=== PATIENT | female | born 1995 | race Caucasian/White ===

== ENCOUNTER 2021-07-05 11:02 | Emergency (ER) | payer OTHER, SELFPAY ==
[2021-07-05] VITALS (8 sets, daily range): BP systolic 102–122; BP diastolic 69–76; PULSE 56–66; RESP 15–18; TEMP 37.1; O2SAT 94–100
--- NOTE | 2021-07-05 11:50 | ED.CHESTPAIN ---
HPI - Chest Pain General Chief Complaint: Chest Pain Stated Complaint: lymph nodes/left arm numbness x3 days Time Seen by Provider: 07/05/21 11:27 Source: patient Mode of arrival: Ambulatory Limitations: no limitations History of Present Illness HPI narrative: Patient is a 26-year-old female who presents with cervical lymphadenopathy. She states she 1st noticed a mild lymph node on the left side of her now 14 months ago. She has been seen by her primary care provider for and has had ultrasound. Over the last 2 weeks she has noticed increase in lymph nodes and size now pulse bilaterally. She has no sore throat no difficulty breathing no fever no cough no chest pain no nausea or vomiting. She overall feels well. She has not had any night sweats. She has had weight loss over the last 17 months but she did get and loss baby weight she got to a point where she was happy with her weight however she continue to lose more weight she has lost over 70 lb. She has noted some increased fatigue. She has had some numbness and tingling in her left arm. No significant swelling in her axilla as or groin. No pain or frequent urination. Related Data Home Medications Medication Instructions Recorded Confirmed cephalexin 500 mg capsule 500 mg PO QID 07/05/21 07/05/21 Allergies Allergy/AdvReac Type Severity Reaction Status Date / Time clarithromycin [From Biaxin] Allergy Unknown Verified 07/05/21 11:43 Review of Systems Review of Systems Narrative: GENERAL: Denies chills, fatigue, malaise, fever, sweats, travel HEENT: See HPI RESPIRATORY: Denies dyspnea, cough, wheezing, hemoptysis, sputum. CARDIOVASCULAR: Denies chest pain, palpitations, orthopnea, edema GASTROINTESTINAL: Denies nausea, vomiting, abdominal pain, diarrhea, constipation, melena. : Denies dysuria, frequency, incontinence, hematuria, urinary retention, flank pain. MUSCULOSKELETAL: Denies weakness, joint pain, or bony pain SKIN: No rash, no erythema, no pruritus NEUROLOGIC: Denies weakness, dizziness, headache, numbness, change in speech, confusion PSYCHIATRIC: No concerning psychosocial issues. 12 point review of systems is negative except for those stated above and HPI Patient History Social History Smoking Status: Former smoker Smoking Status: Former smoker alcohol intake frequency: 0-2 drinks per day Substance Use Type: does not use Exam Initial Vital Signs Initial Vital Signs: Vital Signs Temperature 98.7 F 07/05/21 11:05 Pulse Rate 56 L 07/05/21 11:05 Respiratory Rate 18 07/05/21 11:05 Blood Pressure 122/76 07/05/21 11:05 Pulse Oximetry 99 07/05/21 11:05 GENERAL: Alert well dressed well-appearing 26-year-old female in no acute distress. HEENT: Head atraumatic,EOMI, pupils reactive, face symmetric, moist mucous membranes NECK: Posterior chain cervical lymphadenopathy noted more prominently on the left than the right but both present. Mobile nontender non erythematous. PHARYNX: No enlarged tonsils no uvula deviation CARDIOVASCULAR: Regular rate and rhythm without murmurs, rubs or gallops. RESPIRATORY: Breath sounds equal bilaterally, no wheezes rales or rhonchi. ABDOMEN: Soft, nontender. Normoactive bowel sounds all 4 quadrants. No guarding or rebound. EXTREMITIES: Normal range of motion, no clubbing or edema. Neurovascularly intact NEUROLOGICAL: Alert and oriented x4.Normal gait and speech. SKIN: Warm, dry, no laceration, no petechiae, no rashes or lesions. No axilla lymph nodes present bilaterally Course Orders Ordered: ED Orders 07/05/21 11:48 Complete Blood Count AUTO DIFF Stat Comprehensive Metabolic Panel Stat Lipase Stat Monotest Stat 07/05/21 12:02 CT chest abd pel w con Stat Vital Signs Vital signs: Vital Signs - 8 hr 07/05/21 12:00 07/05/21 12:30 07/05/21 13:00 Pulse Rate 64 60 59 L Blood Pressure 121/72 Pulse Oximetry 99 97 99 07/05/21 13:30 07/05/21 13:44 Pulse Rate 66 Blood Pressure 102/72 Pulse Oximetry 94 MDM - Chest Pain Lab Data Result diagrams: 07/05/21 11:48 07/05/21 11:48 Labs: Lab Results 07/05/21 07/05/21 07/05/21 Range/Units 11:48 11:48 11:48 WBC 6.5 (4.5-11.0) X10^3/uL RBC 4.26 (4.0-5.2) X10^6/uL Hgb 12.9 (12.0-16.0) g/dL Hct 38.9 (36-46) % MCV 91.5 (80-100) fL MCH 30.4 (26-34) PG MCHC 33.2 (30-36) % RDW 12.8 (11.6-14.8) % Plt Count 232 (150-400) X10^3/uL Neut % (Auto) 50.5 (50-75) % Lymph % (Auto) 41.1 H (25-40) % Hubbard % (Auto) 6.0 (3-14) % Eos % (Auto) 1.5 L (2-4) % Baso % (Auto) 0.9 (0-2) % Neut # (Auto) 3300 (1056-3903) /uL Lymph # (Auto) 2700 (8667-7719) /uL Hubbard # (Auto) 400 (0-900) /uL Eos # (Auto) 100 (0-450) /uL Baso # (Auto) 100 (0-100) /uL Sodium 139 (137-145) mmol/L Potassium 3.7 (3.4-5.1) mmol/L Chloride 108 H (98-107) mmol/L Carbon Dioxide 27 (22-32) mmol/L BUN 7 (7-17) mg/dL Creatinine 0.65 (0.52-1.04) mg/dL Estimated GFR > 60.0 (>60) mL/min BUN/Creatinine Ratio 10.8 (6-22) Glucose 91 (70-100) mg/dL Calcium 9.5 (8.4-10.2) mg/dL Total Bilirubin 0.8 (0.2-1.3) mg/dL AST 33 (14-36) IU/L ALT 17 (<35) IU/L Alkaline Phosphatase 60 (38-126) U/L Total Protein 7.0 (6.3-8.2) g/dL Albumin 4.3 (3.5-5.0) g/dL Globulin 2.7 (1.7-4.1) g/dL Albumin/Globulin Ratio 1.6 (1.0-2.8) Lipase 133 (23-300) U/L Monoscreen Negative (Negative) Point of Care Testing Test Results Negative Urine Dip Bedside Urine Glucose Negative Bedside Urine Bilirubin - Negative Bedside Urine Ketone - Negative Urine Specific [place] 1.020 Bedside Urine Occult Blood - Negative Bedside Urine pH 6.0 Bedside Urine Protein - Negative Bedside Urine Urobilinogen - Negative Bedside Urine Nitrite - Negative Bedside Urine Leukocytes - Negative Esterase Imaging Data CT scan - abdomen/pelvis: Radiologist's Impression: PROCEDURE:? CT CHEST ABD PEL W CON ? INDICATIONS:? Cervical swollen lymph nodes x 14 months ? TECHNIQUE:? After the administration of oral and intravenous contrast, axial sections acquired from the supraclavicular neck to the pubic symphysis.? Coronal and sagittal reformats were performed.? For radiation dose reduction, the following was used:? automated exposure control, adjustment of mA and/or kV according to patient size.? ? COMPARISON:? None. ? FINDINGS:? Image quality:? Excellent.? ? CHEST: Lower Neck: No enlarged lymph nodes.? Thyroid: Within normal limits. Axillae: No enlarged lymph nodes. Chest Wall:? Unremarkable.? ? Lungs and Airways: No consolidation or suspicious nodules. Pleura: No pneumothorax or pleural effusions.? ? Heart: Heart size is normal.? No pericardial effusion. Thoracic Vessels: The aorta and pulmonary arteries demonstrate normal size.? Mediastinum and Cassandra: No enlarged lymph nodes.? There is a small amount residual thymus tissue seen, which is not regarded to be pathologic in a patient of this age. ? Esophagus: No wall thickening. No hiatal hernia. ? ? ABDOMEN: Liver:? Unremarkable.? ? Gallbladder:? Unremarkable.? ? Biliary ducts:? Unremarkable.? ? Pancreas:? Unremarkable.? ? Spleen:? Unremarkable.? ? Adrenal Glands:? Unremarkable.? ? Kidneys and Ureters:? Unremarkable.? ? ? Stomach and Bowel:? Stomach, small bowel loops, and colon are unremarkable.? A normal appendix is incidentally noted.? Peritoneum:? No abnormal intraperitoneal fluid.? No free air.? ? Ventral Wall: ? No hernia.? Abdominal Nodes:? No retroperitoneal or mesenteric adenopathy by size criteria.? Vessels:? Aorta and inferior vena cava are normal in size.? ? PELVIS: Pelvic Organs:? The uterus is unremarkable.? There is a 4.5 cm left ovarian cyst seen, as on series 2, image 101. A small amount of layering free fluid can be seen within the pelvis, which is considered to be within physiologic limits. Bladder:? Unremarkable.? ? Pelvic Nodes: No enlarged lymph nodes.? Miscellaneous: No inguinal hernias are seen. ? ? ? Bones:? There is moderate levoconvex thoracolumbar scoliosis. ? IMPRESSION:? No enlarged lymph nodes are seen throughout, including within the visualized supraclavicular regions. ? Incidental note is made of a 4.5 cm left ovarian cyst, which is almost certainly benign in a patient of this age. If it would be clinically appropriate, a followup pelvic ultrasound could be considered in 6 weeks to assure resolution/ improvement.? ? Moderate levoconvex thoracolumbar scoliosis. MDM Narrative Medical decision making narrative: Patient has some mild cervical lymphadenopathy posteriorly more on right than left. She states increasing lymph nodes over the last 2 weeks. Blood work is overall reassuring. She has no obvious airway compromise of her actually relatively small they are not significantly enlarged. Have not found anyone else in axilla or groin. She she is following up closely with primary care. CT does not show any abnormality. She overall appears well and at this time recommend outpatient follow-up. Discharge Plan Departure Patient Disposition: Home Clinical Impression: Lymphadenopathy Instructions: DI for Lymph Node Biopsy Activity Restrictions/Additional Instructions: *You have been diagnosed with lymphadenopathy *What to do: At this time blood work and CT scan are overall reassuring. You may require and lymph node biopsy. Please follow-up with her primary care provider *Continue to take medications as directed *Follow up with your primary care provider in 2-3 days *Return to ER if you should have fever, increasing weakness fatigue, shortness of breath or any new, worsening or concerning symptoms Prescriptions: No Action cephalexin 500 mg capsule 500 mg PO QID RF: 0 Referrals: Radha Dickey, NAJMA, [employer] [Primary Care Provider] -
--- NOTE | 2021-07-05 12:02 | DI.CT.S_ITS ---
PROCEDURE: CT CHEST ABD PEL W CON INDICATIONS: Cervical swollen lymph nodes x 14 months TECHNIQUE: After the administration of oral and intravenous contrast, axial sections acquired from the supraclavicular neck to the pubic symphysis. Coronal and sagittal reformats were performed. For radiation dose reduction, the following was used: automated exposure control, adjustment of mA and/or kV according to patient size. COMPARISON: None. FINDINGS: Image quality: Excellent. CHEST: Lower Neck: No enlarged lymph nodes. Thyroid: Within normal limits. Axillae: No enlarged lymph nodes. Chest Wall: Unremarkable. Lungs and Airways: No consolidation or suspicious nodules. Pleura: No pneumothorax or pleural effusions. Heart: Heart size is normal. No pericardial effusion. Thoracic Vessels: The aorta and pulmonary arteries demonstrate normal size. Mediastinum and Cassandra: No enlarged lymph nodes. There is a small amount residual thymus tissue seen, which is not regarded to be pathologic in a patient of this age. Esophagus: No wall thickening. No hiatal hernia. ABDOMEN: Liver: Unremarkable. Gallbladder: Unremarkable. Biliary ducts: Unremarkable. Pancreas: Unremarkable. Spleen: Unremarkable. Adrenal Glands: Unremarkable. Kidneys and Ureters: Unremarkable. Stomach and Bowel: Stomach, small bowel loops, and colon are unremarkable. A normal appendix is incidentally noted. Peritoneum: No abnormal intraperitoneal fluid. No free air. Ventral Wall: No hernia. Abdominal Nodes: No retroperitoneal or mesenteric adenopathy by size criteria. Vessels: Aorta and inferior vena cava are normal in size. PELVIS: Pelvic Organs: The uterus is unremarkable. There is a 4.5 cm left ovarian cyst seen, as on series 2, image 101. A small amount of layering free fluid can be seen within the pelvis, which is considered to be within physiologic limits. Bladder: Unremarkable. Pelvic Nodes: No enlarged lymph nodes. Miscellaneous: No inguinal hernias are seen. Bones: There is moderate levoconvex thoracolumbar scoliosis. IMPRESSION: No enlarged lymph nodes are seen throughout, including within the visualized supraclavicular regions. Incidental note is made of a 4.5 cm left ovarian cyst, which is almost certainly benign in a patient of this age. If it would be clinically appropriate, a followup pelvic ultrasound could be considered in 6 weeks to assure resolution/ improvement. Moderate levoconvex thoracolumbar scoliosis. Dictated by: Kirit Diaz M.D. on 07/05/2021 at 12:00 Approved by: Kirit Diaz M.D. on 07/05/2021 at 12:04
--- NOTE | 2021-07-05 12:03 | PC.NURSE ---
pt complaining of lymph node swelling and pain. left arm numbness x 3 days. states they have been following up on her lymph nodes. no trouble swallowing.
[2021-07-05 12:12] LABS: Add Manual Diff / Slide Review NO; Basophils Absolute Auto 100 /uL (0-100); Basophils Percent Auto 0.9 % (0-2); Eosinophils Absolute Auto 100 /uL (0-450); Eosinophils Percent Auto 1.5 % (2-4); Hematocrit 38.9 % (36-46); Hemoglobin 12.9 g/dL (12.0-16.0); Lymphocytes Absolute Auto 2700 /uL (1100-4500); Lymphocytes Percent Auto 41.1 % (25-40); Mean Corpuscular HGB Conc 33.2 % (30-36); Mean Corpuscular Hemoglobin 30.4 PG (26-34); Mean Corpuscular Volume 91.5 fL (80-100); Monocytes Absolute Auto 400 /uL (0-900); Neutrophils Absolute Auto 3300 /uL (1500-7000); Neutrophils Percent Auto 50.5 % (50-75); Platelet Count 232 X10^3/uL (150-400); Red Blood Cell Count 4.26 X10^6/uL (4.0-5.2); Red Cell Distribution Width 12.8 % (11.6-14.8); White Blood Cell Count 6.5 X10^3/uL (4.5-11.0)
[2021-07-05 12:15] LABS: Alanine Aminotransferase 17 IU/L (<35); Albumin 4.3 g/dL (3.5-5.0); Albumin Globulin Ratio 1.6 (1.0-2.8); Alkaline Phosphatase 60 U/L (38-126); Aspartate Aminotransferase 33 IU/L (14-36); BUN Creatinine Ratio 10.8 (6-22); Bilirubin Total 0.8 mg/dL (0.2-1.3); Blood Urea Nitrogen 7 mg/dL (7-17); Calcium 9.5 mg/dL (8.4-10.2); Carbon Dioxide 27 mmol/L (22-32); Chloride 108 mmol/L (98-107); Estimated Glomerular Filt Rate > 60.0 mL/min (>60); Globulin 2.7 g/dL (1.7-4.1); Glucose 91 mg/dL (70-100); HEMOLYSIS 17 (0-50); Lipase 133 U/L (23-300); Potassium 3.7 mmol/L (3.4-5.1); Sodium 139 mmol/L (137-145)
[2021-07-05 12:23] LABS: Monotest Negative (Negative)
== END 2021-07-05 13:45 | disposition home or self-care (01) ==
PROVIDERS: Emergency Provider Emergency Medicine; PCP Nurse Practitioner Family
DX: R59.1 Generalized enlarged lymph nodes (principal); R63.4 Abnormal weight loss
CPT/HCPCS: 36415; 71260; 74177; 80053; 81003; 81025; 83690; 85025; 86318; 99284; Q9967

== ENCOUNTER 2022-04-14 00:34 | Emergency (ER) | payer OTHER, SELFPAY ==
[2022-04-14 00:43] VITALS: BP 145/84; O2SAT 96
[2022-04-14 00:45] VITALS: O2SAT 98
[2022-04-14 00:47] VITALS: BP 130/79
--- NOTE | 2022-04-14 00:52 | DI.RAD.S_ITS ---
PROCEDURE: XR CHEST 2V INDICATIONS: SOB, right sided chest pain TECHNIQUE: 2 views of the chest were acquired. COMPARISON: [facility], CT, CT CHEST ABD PEL W CON, 07/05/2021, 12:42. FINDINGS: Surgical changes and devices: None. Lungs and pleura: Lungs are clear. No pleural effusions or pneumothorax. Mediastinum: Mediastinal contours are normal. Heart size is normal. Bones and chest wall: No suspicious bony abnormalities. Soft tissues appear unremarkable. IMPRESSION: 1. No acute cardiopulmonary disease. Dictated by: Shubham Rodriguez M.D. on 04/14/2022 at 1:19 Approved by: Shubham Rodriguez M.D. on 04/14/2022 at 1:21
--- NOTE | 2022-04-14 00:53 | ED_ITS ---
HPI - Chest Pain General Chief Complaint: Back Pain/Injury Stated Complaint: CHEST PAIN AND BACK PAIN AND IV SITES HAVE LUMP Time Seen by Provider: 04/14/22 00:39 History of Present Illness HPI narrative: 26-year-old female nonsmoker without significant chronic medical problems presents for evaluation of shortness of breath and right-sided chest and back pain over the course of the day. She states that the pain is sharp and stabbing and prevents her from taking a deep breath. It is worse with laying flat or taking a deep breath. She states she feels short of breath only because it hurts to breathe. She denies any cough or hemoptysis. She is not dizzy nor weak or lightheaded. She denies nausea or vomiting. She has had no fever or chills. She recently delivered a child by on April 08 and was discharged a day or 2 later. She denies any vaginal bleeding and states she has had no issues with her incision. She has denies any complications during the and has no history of hypertension or preeclampsia Related Data Home Medications Medication Instructions Recorded Confirmed cephalexin 500 mg capsule 500 mg PO QID 07/05/21 07/05/21 Allergies Allergy/AdvReac Type Severity Reaction Status Date / Time clarithromycin [From Biaxin] Allergy Unknown Verified 07/05/21 11:43 Patient History Social History Smoking Status: Former smoker Smoking Status: Former smoker alcohol intake frequency: 0-2 drinks per day Substance Use Type: does not use Exam Narrative Exam Narrative: GENERAL: [26] year old patient appears stated age. Well-developed patient, in mild distress. In pain, nervous HEAD: Atraumatic. Normocephalic. EYES: Pupils equal round and reactive. Extraocular motions intact. No scleral icterus. No injection or drainage. ENT: Nose without bleeding, purulent drainage. Throat without erythema, tonsillar hypertrophy or exudate. Airway patent. NECK: Trachea midline. Non tender CARDIOVASCULAR: Regular rate and rhythm without murmurs, gallops, or rubs. RESPIRATORY: Clear to auscultation. Breath sounds equal bilaterally. No wheezes, rales, or rhonchi. GASTROINTESTINAL: Abdomen soft, non-tender, nondistended. Incision clean, dry and intact no evidence of dehiscence or drainage EXTREMITIES: No edema or joint tenderness. BACK: Nontender without deformity or crepitance. No flank tenderness. NEURO: AOx3. SKIN: No rash or erythema of visible areas Initial Vital Signs Initial Vital Signs: Vital Signs Blood Pressure 145/84 H 04/14/22 00:43 Pulse Oximetry 96 04/14/22 00:43 Course Orders Ordered: ED Orders 04/14/22 00:52 Chest [XR chest 2V] Stat 04/14/22 00:55 Complete Blood Count AUTO DIFF Stat Comprehensive Metabolic Panel Stat D Dimer Stat LDH [Lactate Dehydrogenase] Stat Lipase Stat Magnesium Stat NT-proBNP (BNP-Adult 18+) Stat Procalcitonin Stat Troponin & CK Cardiac Panel Stat 04/14/22 00:59 COVID19 -Nasal RAPID/Pre-Proc Stat 04/14/22 01:05 Urine Culture Stat Urine Microscopic Stat 04/14/22 01:24 CT angio chest PE protocol Stat Discontinued Medications Sodium Chloride (Normal Saline 0.9%) 1,000 mls @ 1,000 mls/hr IV BOLUS ONE Stop: 04/14/22 01:49 Last Admin: 04/14/22 01:15 Dose: 1,000 mls/hr Documented By: SONYA Ketorolac Tromethamine (Ketorolac 30 Mg/Ml Vial) 15 mg IV NOW ONE Stop: 04/14/22 01:24 Last Admin: 04/14/22 01:27 Dose: 15 mg Documented By: SONYA Vital Signs Vital signs: Vital Signs - 8 hr 04/14/22 00:57 04/14/22 00:43 04/14/22 00:43 Temperature 98.6 F Pulse Rate 70 Respiratory Rate 18 Blood Pressure 130/79 145/84 H Pulse Oximetry 97 96 Oxygen Delivery Method Room Air 04/14/22 00:45 04/14/22 00:47 04/14/22 01:00 Temperature Pulse Rate Respiratory Rate Blood Pressure 130/79 Pulse Oximetry 98 97 Oxygen Delivery Method MDM - Chest Pain Lab Data Result diagrams: 04/14/22 00:55 04/14/22 00:55 Labs: Lab Results 04/14/22 04/14/22 04/14/22 Range/Units 00:55 00:55 00:55 WBC 10.2 (4.5-11.0) X10^3/uL RBC 3.19 L (4.0-5.2) X10^6/uL Hgb 10.2 L (12.0-16.0) g/dL Hct 30.0 L (36-46) % MCV 94.0 (80-100) fL MCH 31.9 (26-34) PG MCHC 33.9 (30-36) % RDW 14.4 (11.6-14.8) % Plt Count 263 (150-400) X10^3/uL Neut % (Auto) 70.6 (50-75) % Lymph % (Auto) 20.0 L (25-40) % Russell % (Auto) 7.3 (3-14) % Eos % (Auto) 1.6 L (2-4) % Baso % (Auto) 0.5 (0-2) % Neut # (Auto) 7200 H (2680-8776) /uL Lymph # (Auto) 2000 (9995-3232) /uL Russell # (Auto) 700 (0-900) /uL Eos # (Auto) 200 (0-450) /uL Baso # (Auto) 0 (0-100) /uL D-Dimer 644 H (<230) ng/mL Sodium 138 (137-145) mmol/L Potassium 3.7 (3.4-5.1) mmol/L Chloride 106 (98-107) mmol/L Carbon Dioxide 25 (22-32) mmol/L BUN 16 (7-17) mg/dL Creatinine 0.75 (0.52-1.04) mg/dL Estimated GFR > 60 (>60) mL/min BUN/Creatinine Ratio 21.3 (6-22) Glucose 101 H (70-100) mg/dL Calcium 9.5 (8.4-10.2) mg/dL Magnesium 1.9 (1.6-2.3) mg/dL Total Bilirubin 1.0 (0.2-1.3) mg/dL AST 30 (14-36) IU/L ALT 25 (<35) IU/L Alkaline Phosphatase 115 (38-126) U/L Lactate Dehydrogenase 643 H (313-618) U/L Total Creatine Kinase 125 (30-135) U/L CK-MB (CK-2) 0.49 (<2.37) ng/mL CK-MB (CK-2) Rel Index 0.4 L (1.5-5.0) % Troponin I < 0.012 (0.01-0.034) ng/mL NT-Pro-B Natriuret Pep 203 H (<125) pg/mL Total Protein 6.8 (6.3-8.2) g/dL Albumin 3.6 (3.5-5.0) g/dL Globulin 3.2 (1.7-4.1) g/dL Albumin/Globulin Ratio 1.1 (1.0-2.8) Lipase 82 (23-300) U/L Procalcitonin 0.07 (<0.5) ng/mL Urine RBC (0-5/HPF) Urine WBC (0-5/HPF) Urine Bacteria (None) Ur Culture Indicated? Micro UA Comment SARS-CoV-2 (PCR) (Negative) 04/14/22 04/14/22 Range/Units 00:59 01:05 WBC (4.5-11.0) X10^3/uL RBC (4.0-5.2) X10^6/uL Hgb (12.0-16.0) g/dL Hct (36-46) % MCV (80-100) fL MCH (26-34) PG MCHC (30-36) % RDW (11.6-14.8) % Plt Count (150-400) X10^3/uL Neut % (Auto) (50-75) % Lymph % (Auto) (25-40) % Russell % (Auto) (3-14) % Eos % (Auto) (2-4) % Baso % (Auto) (0-2) % Neut # (Auto) (5087-1033) /uL Lymph # (Auto) (0744-2120) /uL Russell # (Auto) (0-900) /uL Eos # (Auto) (0-450) /uL Baso # (Auto) (0-100) /uL D-Dimer (<230) ng/mL Sodium (137-145) mmol/L Potassium (3.4-5.1) mmol/L Chloride (98-107) mmol/L Carbon Dioxide (22-32) mmol/L BUN (7-17) mg/dL Creatinine (0.52-1.04) mg/dL Estimated GFR (>60) mL/min BUN/Creatinine Ratio (6-22) Glucose (70-100) mg/dL Calcium (8.4-10.2) mg/dL Magnesium (1.6-2.3) mg/dL Total Bilirubin (0.2-1.3) mg/dL AST (14-36) IU/L ALT (<35) IU/L Alkaline Phosphatase (38-126) U/L Lactate Dehydrogenase (313-618) U/L Total Creatine Kinase (30-135) U/L CK-MB (CK-2) (<2.37) ng/mL CK-MB (CK-2) Rel Index (1.5-5.0) % Troponin I (0.01-0.034) ng/mL NT-Pro-B Natriuret Pep (<125) pg/mL Total Protein (6.3-8.2) g/dL Albumin (3.5-5.0) g/dL Globulin (1.7-4.1) g/dL Albumin/Globulin Ratio (1.0-2.8) Lipase (23-300) U/L Procalcitonin (<0.5) ng/mL Urine RBC 1-5/hpf (0-5/HPF) Urine WBC 0-1/hpf (0-5/HPF) Urine Bacteria Few (2-10) H (None) Ur Culture Indicated? Culture not indicate Micro UA Comment * SARS-CoV-2 (PCR) Negative (Negative) Urine Dip Bedside Urine Glucose Negative Bedside Urine Bilirubin - Negative Bedside Urine Ketone - Negative Urine Specific [place] 1.015 Bedside Urine Occult Blood ++ Bedside Urine pH 6.0 Bedside Urine Protein - Negative Bedside Urine Urobilinogen - Negative Bedside Urine Nitrite - Negative Imaging Data Chest x-ray: Radiologist's Impression: [address] [address] XRay Report Signed Patient: Gali Ramirez MR#: [id number] : 1995 Acct:[id number] Age/Sex: 26 / F Date of Service: 04/14/22 Loc: ED Accession Number: [id number] ?? Procedure: XR chest 2V Ordering Provider: Liam Walls D.O. PROCEDURE:? XR CHEST 2V ? INDICATIONS:? SOB, right sided chest pain ? TECHNIQUE:? 2 views of the chest were acquired.? ? COMPARISON:? [facility], CT, CT CHEST ABD PEL W CON, 07/05/2021, 12:42. ? FINDINGS:? ? Surgical changes and devices:? None.? ? Lungs and pleura:? Lungs are clear.? No pleural effusions or pneumothorax.? ? Mediastinum:? Mediastinal contours are normal.? Heart size is normal.? ? Bones and chest wall:? No suspicious bony abnormalities.? Soft tissues appear unremarkable.? ? IMPRESSION:? ? 1.? No acute cardiopulmonary disease. ? ? ? Dictated by: Shubham Rodriguez M.D. on 04/14/2022 at 1:19 ? ? Approved by: Shubham Rodriguez M.D. on 04/14/2022 at 1:21? CT scan - chest: Radiologist's Impression: Close Chest CTA (Signed) Shubham Rodriguez - 04/14/22 Chest X-Ray (Signed) Shubham Rodriguez - 04/14/22 Launch?[place] [address] CT Scan Report Signed Patient: Gali Ramirez MR#: [id number] : 1995 Acct:[id number] Age/Sex: 26 / F Date of Service: 04/14/22 Loc: ED Accession Number: [id number] ?? Procedure: CT angio chest PE protocol Ordering Provider: Liam Walls D.O. PROCEDURE:? CT ANGIO CHEST PE PROTOCOL ? INDICATIONS:? severe R side chest pain, elevated Dimer, recent surgery ? TECHNIQUE:? After the administration of intravenous contrast, 2 mm thick sections acquired from the pulmonary apices to the posterior costophrenic angles.? 3-dimensional maximum intensity projection (MIP) coronal and sagittal reformats were then acquired through the thorax.? For radiation dose reduction, the following was used:? automated exposure control, adjustment of mA and/or kV according to patient size.? ? COMPARISON:? None. ? FINDINGS:? Image quality:? Excellent.? ? Pulmonary arteries:? There is suboptimal opacification of the pulmonary arteries limiting evaluation.? No filling defects within the main or lobar pulmonary arteries to suggest central pulmonary embolism.? There is nondiagnostic evaluation of segmental and subsegmental pulmonary arteries. ? Lower Neck: No lymphadenopathy by size criteria. Thyroid:? Visualized thyroid demonstrates no discrete nodules. Axillae: No lymphadenopathy by size criteria. Chest Wall:? Unremarkable.? Bones: Visualized osseous structures demonstrate no suspicious lesions. ? Lungs and Airways:? No acute consolidation.? There is mild dependent atelectasis.? A few indistinct ground-glass opacities posteriorly in the right lung base likely represent atelectasis.? The trachea and central airways are patent. Pleura: No pneumothorax or pleural effusions.? ? Heart: Heart size is normal.? No pericardial effusion. Thoracic Vessels: The aorta and pulmonary arteries are normal in size.? Mediastinum and Cassandra: No lymphadenopathy by size criteria.? There is residual thymic tissue in the anterior mediastinum. Esophagus: No wall thickening. No hiatal hernia. Abdomen:? Visualized upper abdominal solid organs appear normal in the early arterial phase of enhancement.? ? IMPRESSION:? ? 1.? Suboptimal contrast opacification of the pulmonary arteries limiting evaluation for pulmonary embolism.? No central pulmonary emboli demonstrated in the main or lobar pulmonary arteries. ? 2. No acute consolidation in the lungs. ? ? Dictated by: Shubham Rodriguez M.D. on 04/14/2022 at 2:16 ? ? Approved by: Shubham Rodriguez M.D. on 04/14/2022 at 2:2 MDM Narrative Medical decision making narrative: Patient with recent presents with severe right-sided pleuritic type chest pain with stable vital signs and no obvious external manifestations. Labs are unremarkable and there is no evidence of infectious process, anemia, HELLP syndrome or preeclampsia. Diagnoses such as pneumonia, pneumothorax and pulmonary embolism are considered. D-dimer was ordered more for its potential negative predictability than confirmation of the need for CT angiogram. There is no evidence of pericardial effusion or large central clot nor any pneumonia. Patient feels significant improvement after above-stated therapies. Extensive return precautions discussed questions answered to her apparent satisfaction Discharge Plan Departure Patient Disposition: Home Clinical Impression: Acute right-sided thoracic back pain Instructions: DI for Muscle Strain Activity Restrictions/Additional Instructions: *You have been diagnosed with [right-sided chest and back pain, thankfully as we discussed your history, physical exam, labs and imaging are very reassuring and there is no evidence of a life-threatening cause such as blood clot, collapsed lung or other.] *What to do: *Please continue to take Tylenol and Motrin for aches and pains *Please follow up with your primary care provider in 2-3 days, call for an appointment. Let them know you were seen in the Emergency Department and that we ask that you be seen in follow up. We will electronically transmit a record of today's note if your PCP is in our system *If you do not have a primary care provider please contact the [facility] Resource line at [phone]. They will ask some questions about your medical history and help get you set up with a doctor in the community. *Return to Emergency Department if you should have any new, worsening or concerning symptoms, such as [fever greater than 101 F, shaking chills, worsening pain, persistent vomiting or other bothersome symptoms] Prescriptions: No Action cephalexin 500 mg capsule 500 mg PO QID Label Comments: Take 1 capsule by mouth four times a day for 10 days for swollen lymph glands Rx Instructions: started 07/03 x 10 days. Referrals: Radha Dickey ARNP, [facility] [Primary Care Provider] -
[2022-04-14 00:57] VITALS: BP 130/79; PULSE 70; RESP 18; TEMP 37; O2SAT 97; BMI 29.6
[2022-04-14 01:00] VITALS: O2SAT 97
[2022-04-14 01:08] LABS: Add Manual Diff / Slide Review NO; Basophils Absolute Auto 0 /uL (0-100); Basophils Percent Auto 0.5 % (0-2); Eosinophils Absolute Auto 200 /uL (0-450); Eosinophils Percent Auto 1.6 % (2-4); Hemoglobin 10.2 g/dL (12.0-16.0); Lymphocytes Absolute Auto 2000 /uL (1100-4500); Mean Corpuscular HGB Conc 33.9 % (30-36); Mean Corpuscular Hemoglobin 31.9 PG (26-34); Monocytes Absolute Auto 700 /uL (0-900); Monocytes Percent Auto 7.3 % (3-14); Neutrophils Absolute Auto 7200 /uL (1500-7000); Neutrophils Percent Auto 70.6 % (50-75); Platelet Count 263 X10^3/uL (150-400); Red Blood Cell Count 3.19 X10^6/uL (4.0-5.2); Red Cell Distribution Width 14.4 % (11.6-14.8); White Blood Cell Count 10.2 X10^3/uL (4.5-11.0)
[2022-04-14 01:13] LABS: Alanine Aminotransferase 25 IU/L (<35); Albumin 3.6 g/dL (3.5-5.0); Albumin Globulin Ratio 1.1 (1.0-2.8); Alkaline Phosphatase 115 U/L (38-126); Aspartate Aminotransferase 30 IU/L (14-36); BUN Creatinine Ratio 21.3 (6-22); Blood Urea Nitrogen 16 mg/dL (7-17); Calcium 9.5 mg/dL (8.4-10.2); Carbon Dioxide 25 mmol/L (22-32); Chloride 106 mmol/L (98-107); Creatine Kinase 125 U/L (30-135); Estimated Glomerular Filt Rate > 60 mL/min (>60); Globulin 3.2 g/dL (1.7-4.1); Glucose 101 mg/dL (70-100); HEMOLYSIS < 15 (0-50); Lactate Dehydrogenase 643 U/L (313-618); Lipase 82 U/L (23-300); Magnesium 1.9 mg/dL (1.6-2.3); Potassium 3.7 mmol/L (3.4-5.1); Sodium 138 mmol/L (137-145); Total Protein 6.8 g/dL (6.3-8.2)
[2022-04-14] MEDS: SODIUM CHLORIDE 0.9% 1,000 ML 1000 ML IV (01:15)
[2022-04-14 01:19] LABS: D Dimer 644 ng/mL (<230)
[2022-04-14 01:23] LABS: COVID19 -Nasal RAPID Negative (Negative)
[2022-04-14 01:24] LABS: NT-proBNP (BNP-Adult 18+) 203 pg/mL (<125); Troponin I < 0.012 ng/mL (0.01-0.034)
--- NOTE | 2022-04-14 01:24 | DI.CT.S_ITS ---
PROCEDURE: CT ANGIO CHEST PE PROTOCOL INDICATIONS: severe R side chest pain, elevated Dimer, recent surgery TECHNIQUE: After the administration of intravenous contrast, 2 mm thick sections acquired from the pulmonary apices to the posterior costophrenic angles. 3-dimensional maximum intensity projection (MIP) coronal and sagittal reformats were then acquired through the thorax. For radiation dose reduction, the following was used: automated exposure control, adjustment of mA and/or kV according to patient size. COMPARISON: None. FINDINGS: Image quality: Excellent. Pulmonary arteries: There is suboptimal opacification of the pulmonary arteries limiting evaluation. No filling defects within the main or lobar pulmonary arteries to suggest central pulmonary embolism. There is nondiagnostic evaluation of segmental and subsegmental pulmonary arteries. Lower Neck: No lymphadenopathy by size criteria. Thyroid: Visualized thyroid demonstrates no discrete nodules. Axillae: No lymphadenopathy by size criteria. Chest Wall: Unremarkable. Bones: Visualized osseous structures demonstrate no suspicious lesions. Lungs and Airways: No acute consolidation. There is mild dependent atelectasis. A few indistinct ground-glass opacities posteriorly in the right lung base likely represent atelectasis. The trachea and central airways are patent. Pleura: No pneumothorax or pleural effusions. Heart: Heart size is normal. No pericardial effusion. Thoracic Vessels: The aorta and pulmonary arteries are normal in size. Mediastinum and Cassandra: No lymphadenopathy by size criteria. There is residual thymic tissue in the anterior mediastinum. Esophagus: No wall thickening. No hiatal hernia. Abdomen: Visualized upper abdominal solid organs appear normal in the early arterial phase of enhancement. IMPRESSION: 1. Suboptimal contrast opacification of the pulmonary arteries limiting evaluation for pulmonary embolism. No central pulmonary emboli demonstrated in the main or lobar pulmonary arteries. 2. No acute consolidation in the lungs. Dictated by: Shubham Rodriguez M.D. on 04/14/2022 at 2:16 Approved by: Shubham Rodriguez M.D. on 04/14/2022 at 2:22
[2022-04-14] MEDS: KETOROLAC 30 MG/ML VIAL 15 MG IV (01:27)
[2022-04-14 01:28] LABS: CKMB % Relative Index 0.4 % (1.5-5.0); Creatine Kinase MB 0.49 ng/mL (<2.37)
[2022-04-14 01:29] LABS: Procalcitonin 0.07 ng/mL (<0.5)
[2022-04-14 01:34] LABS: Bacteria Urine Few (2-10); RBC Urine 1-5/HPF (0-5/HPF); WBC Urine 0-1/HPF (0-5/HPF)
[2022-04-14 02:58] VITALS: BP 117/69; PULSE 68; RESP 16; O2SAT 100
== END 2022-04-14 02:59 | disposition home or self-care (01) ==
PROVIDERS: Emergency Provider Emergency Medicine; PCP Nurse Practitioner Family
DX: M54.6 Pain in thoracic spine (principal); R07.9 Chest pain, unspecified; R06.02 Shortness of breath; Z20.822 Contact with and (suspected) exposure to COVID-19
CPT/HCPCS: 36415; 71046; 71275; 80053; 81003; 81015; 82550; 82553; 83615; 83690; 83735; 83880; 84145; 84484; 85025; 85379; 87086; 87635; 96374; 99284; C9803; J1885; Q9967